=== PATIENT | female | born 1975 | race Caucasian/White ===

== ENCOUNTER 2016-12-31 10:49 | Outpatient (CLI) | payer OTHER ==
[2017-01-03 20:09] LABS: Hep C PCR-Quant HCV Not Detected IU/mL (.)
== END 2016-12-31 10:50 | disposition home or self-care (01) ==
LOC: MADLAB 10:49
PROVIDERS: ATTEND Internal Medicine Gastroenterology
DX: B18.2 Chronic viral hepatitis C (principal)
CPT/HCPCS: 36415; 87522; 87902